=== PATIENT | female | born 1955 | race Caucasian/White ===

== ENCOUNTER 2020-08-25 09:33 | Day surgery (SDC) | payer OTHER ==
[~2020-08-25 09:33] MED LIST: Lactated Ringers 1,000 ML IV SCH; Lidocaine 1%/Sod Bicarbonate in NS 8.4% 1 ML Syringe IDERM PRN; Sodium Chloride 0.9% 10 ML Syringe FLUSH PRN
[2020-08-25] MEDS ORDERED: Propofol 200 MG/20 ML SDV ONE ×2 (09:51→10:57)
--- NOTE | 2020-08-25 10:06 | PCM.PREANE ---
Preanesthetic Assessment - Procedure Proposed Procedure: colonoscopy - Anesthesia/Transfusion/Family Hx Anesthesia History: Prior Anesthesia Without Reaction Family History of Anesthesia Reaction: No Transfusion History: No Prior Transfusion(s) - Review of Systems General: No Symptoms Pulmonary: No Symptoms Cardiovascular: No Symptoms Gastrointestinal: No Symptoms Neurological: No Symptoms Other: Reports: Diabetes (diet) - Physical Assessment NPO Status Date: 08/24/20 NPO Status Time: 21:00 Vital Signs: 116/85 87 96% 16 97.1 Height: 5 ft 3 in Weight: 68 kg ASA Class: 2 Mental Status: Alert & Oriented x3 Airway Class: Mallampati = 1 Thyro-Mental Finger Breadths: 3 Mouth Opening Finger Breadths: 3 ROM/Head Extension: Full Lungs: Clear to Auscultation, Normal Respiratory Effort Cardiovascular: Regular Rate, Regular Rhythm - Allergies Allergies/Adverse Reactions: Allergies Allergy/AdvReac Type Severity Reaction Status Date / Time Penicillins Allergy Rash Verified 08/25/20 09:59 Sulfa (Sulfonamide Allergy Rash Verified 08/25/20 09:59 Antibiotics) - Blood Blood Available: No - Acknowledgements Anesthesia Type Planned: MAC Pt an Appropriate Candidate for the Planned Anesthesia: Yes Alternatives and Risks of Anesthesia Discussed w Pt/Guardian: Yes Pt/Guardian Understands and Agrees with Anesthesia Plan: Yes PreAnesthesia Questionnaire HEENT History: Reports: Impaired Vision, Other (See Below) Other HEENT History: WEARS GLASSES Cardiovascular History: Reports: High Cholesterol, Hypertension Respiratory History: Reports: None Gastrointestinal History: Reports: Colon Polyp Genitourinary History: Reports: Other (See Below) Other Genitourinary History: OAB, hematuria RIGHT OF WAY MAN History: Reports: None Musculoskeletal History: Reports: None Neurological History: Reports: None Psychiatric History: Reports: Other (See Below) Other Psychiatric History: insomnia Endocrine/Metabolic History: Reports: Other (See Below) Other Endocrine/Metabolic History: borderline diabetes, managed with weight loss, diet, exercise Hematologic History: Reports: None Immunologic History: Reports: None Oncologic (Cancer) History: Reports: None Dermatologic History: Reports: None - Past Surgical History Head Surgeries/Procedures: Reports: None Cardiovascular Surgical History: Reports: None Respiratory Surgical History: Reports: None GI Surgical History: Reports: Appendectomy, Colonoscopy, Hernia Repair/Other Female Surgical History: Reports: Hysterectomy, Other (See Below) Other Female Surgeries/Procedures: cystocele and rectocele repair Endocrine Surgical History: Reports: None Neurological Surgical History: Reports: None Musculoskeletal Surgical History: Reports: None Oncologic Surgical History: Reports: None Dermatological Surgical History: Reports: None - SUBSTANCE USE Tobacco Use Status *Q: Never Tobacco User Tobacco Use Within Last Twelve Months: No Second Hand Smoke Exposure: No Days Per Week of Alcohol Use: 0 Recreational Drug Use History: No - HOME MEDS Home Medications: Home Meds Ibuprofen 200 - 400 mg PO Q6H PRN 08/22/20 [History] Multivitamin 1 each PO DAILY 08/22/20 [History] Ubidecarenone [Coq-10] 100 mg PO DAILY 08/22/20 [History] atorvaSTATin [Lipitor] 40 mg PO BEDTIME 08/22/20 [History] - CURRENT (IN HOUSE) MEDS Current Meds: Current Medications Lactated Ringer's (Ringers, Lactated) 1,000 mls @ 125 mls/hr IV ASDIRECTED ERIC Stop: 08/25/20 23:00 Last Admin: 08/25/20 10:00 Dose: 125 mls/hr Documented by: Lidocaine/Sodium Bicarbonate (Buffered Lidocaine 1% In Ns 8.4%) 0.25 ml IDERM ONETIME PRN PRN Reason: Prior to IV Start Stop: 08/25/20 18:00 Last Admin: 08/25/20 10:00 Dose: 0.25 ml Documented by: Sodium Chloride (Saline Flush) 10 ml FLUSH ASDIRECTED PRN PRN Reason: Keep Vein Open Stop: 08/25/20 18:00 Discontinued Medications Propofol (Diprivan 20 Ml) Confirm Administered Dose 400 mg .ROUTE .STK-MED ONE Stop: 08/25/20 09:52
--- NOTE | 2020-08-25 11:28 | PCM48HPAN ---
Post Anesthesia Note - EVALUATION WITHIN 48HRS OF ANESTHETIC Vital Signs in Normal Range: Yes Patient Participated in Evaluation: Yes Respiratory Function Stable: Yes Airway Patent: Yes Cardiovascular Function Stable: Yes Hydration Status Stable: Yes Pain Control Satisfactory: Yes Nausea and Vomiting Control Satisfactory: Yes Mental Status Recovered: Yes Vital Signs: Last Vital Signs Temp 36.2 C 08/25/20 10:01 Pulse 87 08/25/20 10:01 Resp 16 08/25/20 10:01 BP 116/85 08/25/20 10:01 Pulse Ox 96 08/25/20 10:01
--- NOTE | 2020-08-25 21:23 | PROC ---
DATE OF OPERATION: 08/25/2020 SURGEON: Malathi Jones MD PREOPERATIVE DIAGNOSIS: History of polyps in the colon. POSTOPERATIVE DIAGNOSES: 1. Ascending colon polyp. 2. Grade II internal hemorrhoids. OPERATION PERFORMED: Colonoscopy. ANESTHESIA: Monitored anesthesia care. ESTIMATED BLOOD LOSS: Minimal. COMPLICATIONS: None. INDICATIONS AND CONSENT: Ms. Pride is a 65-year-old female who had colonoscopy in the last 10 to 15 years with polyps found. The patient was asked to repeat another colonoscopy within 10 years, but she did not get around in doing it until now. She came to my office for evaluation. She did not have any other symptoms. We discussed risks, benefits, and alternatives of the colonoscopy and informed consent was obtained. DETAILS OF PROCEDURE: The patient was taken to procedure room and placed in left lateral decubitus position. Monitored anesthesia care was induced. Time-out was performed and we began the procedure with perianal exam, which was normal. Scope was inserted and taken all the way to the cecum. Appendiceal orifice and ileocecal valve were photographed. In the mid ascending colon, there was a 4 mm semi- pedunculated polyp. This was removed with 2 methods, 1 is hot snare, and a small remainder of the polyp was removed with cold forceps. The entire polyp was completely removed. EBL was minimal. We continued to examine the colon. The entirety of the colon was otherwise normal. In the rectum on retroflexion, there were grade 2 internal hemorrhoids that were nonbleeding. Prep for this patient was good, and air was suctioned out and procedure was concluded. Of note, there was a 3 mm area in the sigmoid colon that was reddened, almost resembling angiodysplasia, but this was nonbleeding and appeared normal, so it was left alone. Scope was concluded. There was no complication. The patient was awoken from monitored anesthesia care and taken to the recovery area. The patient will be allowed to return home. The patient should follow up in 2 weeks for pathology discussion and followup plans. MMODAL /[id number] MTDDeb
== END 2020-08-25 12:03 | disposition home or self-care (01) ==
LOC: JD.SDS 09:33
PROVIDERS: ATTEND Surgery
DX: Z12.11 Encounter for screening for malignant neoplasm of colon (principal); D12.2 Benign neoplasm of ascending colon; K64.1 Second degree hemorrhoids; R22.41 Localized swelling, mass and lump, right lower limb; E11.9 Type 2 diabetes mellitus without complications; I10 Essential (primary) hypertension; E78.5 Hyperlipidemia, unspecified; Z90.49 Acquired absence of other specified parts of digestive tract; Z86.010 Personal history of colon polyps; Z88.0 Allergy status to penicillin; Z88.2 Allergy status to sulfonamides; Z80.0 Family history of malignant neoplasm of digestive organs; Z98.890 Other specified postprocedural states; Z79.899 Other long term (current) drug therapy
CPT/HCPCS: 45385; J2704; J7120; 00812

== ENCOUNTER 2022-02-22 20:39 | Emergency (ER) | payer OTHER | END 2022-02-22 23:09 | disposition home or self-care (01) | LOC: JD.ED 20:39 | DX: R25.2 Cramp and spasm (principal); I10 Essential (primary) hypertension; Z88.0 Allergy status to penicillin; Z88.2 Allergy status to sulfonamides; Z79.899 Other long term (current) drug therapy; Z90.49 Acquired absence of other specified parts of digestive tract; Z90.710 Acquired absence of both cervix and uterus | CPT/HCPCS: 36415; 85610; 85730; 93971-26-LT; 93971-LT; 99283; 99284 ==